=== PATIENT | female | born 1960 | race Caucasian/White ===

== ENCOUNTER → 2020-02-02 | Outpatient (CLI) | payer BC, OTHER ==
[~2020-02-02] MED LIST: [UNRECOGNIZED DRUG - OTHER]
== END ==
LOC: RAD 14:50
PROVIDERS: ATTEND Nurse Practitioner
DX: Z12.31 Encounter for screening mammogram for malignant neoplasm of breast (principal)

== ENCOUNTER → 2021-03-28 | Outpatient (CLI) | payer BC, OTHER | LOC: RAD 10:26 | PROVIDERS: ATTEND Nurse Practitioner | DX: Z12.31 Encounter for screening mammogram for malignant neoplasm of breast (principal); N64.89 Other specified disorders of breast ==